=== PATIENT | male | born 1975 | race Caucasian/White ===

== ENCOUNTER 2017-06-21 19:40 | Emergency (ER) | payer SELFPAY ==
[2017-06-21 21:10] LABS: INFLUENZA A PATIENT NEGATIVE (NEGATIVE)
[2017-06-21 21:11] LABS: INFLUENZA B PATIENT POSITIVE (NEGATIVE); OBC FLU VALID
[2017-06-21] MEDS: OSELTAMIVIR 75 MG CAPSULE PO (21:27)
[2017-06-21] MEDS: BENZONATATE 100 MG CAPSULE. PO (21:28)
[2017-06-21] MEDS: IBUPROFEN 600 MG TABLET. PO (21:28)
[2017-06-21] MEDS: ACETAMINOPHEN 500 MG TABLET PO (21:28)
== END 2017-06-21 21:58 | disposition home or self-care (01) ==
LOC: ER 19:40
DX: J10.1 Influenza due to other identified influenza virus with other respiratory manifestations (principal); G40.909 Epilepsy, unspecified, not intractable, without status epilepticus; F12.90 Cannabis use, unspecified, uncomplicated; Z88.0 Allergy status to penicillin; Z88.5 Allergy status to narcotic agent
CPT/HCPCS: 71046; 87804; 87804-59; 99285-25

== ENCOUNTER 2018-08-01 09:17 | Emergency (ER) | payer SELFPAY ==
[~2018-08-01] VITALS: Ht 180.3 cm; Wt 88.5 kg
[~2018-08-01 09:17] MED LIST: BENZ100C PO; IBUP-1007 PO; OSEL75CA PO
[2018-08-01 09:20] VITALS: BP 132/86
[2018-08-01] MEDS ORDERED: KETOROLAC 60 MG/2 ML VIAL. IM ONE (10:00)
[2018-08-01] MEDS ORDERED: NAPR-683 PO (10:19)
[2018-08-01] MEDS ORDERED: CEPH-264 PO (10:19)
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
== END 2018-08-01 10:25 | disposition home or self-care (01) ==
LOC: ER 09:17
DX: S02.5XXG Fracture of tooth (traumatic), subsequent encounter for fracture with delayed healing (principal); K04.7 Periapical abscess without sinus; Z71.6 Tobacco abuse counseling; F17.200 Nicotine dependence, unspecified, uncomplicated; Z88.0 Allergy status to penicillin; Z88.5 Allergy status to narcotic agent; X58.XXXD Exposure to other specified factors, subsequent encounter
CPT/HCPCS: 96372; 99283; J1885